=== PATIENT | male | born 1945 | race Caucasian/White ===

== ENCOUNTER 2019-11-05 10:15 | Emergency (ER) | payer OTHER ==
[~2019-11-05] VITALS: Ht 165.1 cm; Wt 96.4 kg
[2019-11-05 10:22] VITALS: Ht 165.1 cm; Wt 96.4 kg
[2019-11-05 12:13] VITALS: BP 135/74
== END 2019-11-05 12:13 | disposition home or self-care (01) ==
LOC: ED 10:15
DX: S31.113A Laceration without foreign body of abdominal wall, right lower quadrant without penetration into peritoneal cavity, initial encounter (principal); I10 Essential (primary) hypertension; E11.9 Type 2 diabetes mellitus without complications; E78.00 Pure hypercholesterolemia, unspecified; W54.0XXA Bitten by dog, initial encounter; Y93.01 Activity, walking, marching and hiking; Y92.89 Other specified places as the place of occurrence of the external cause; Y99.8 Other external cause status
CPT/HCPCS: 90715; J1885

== ENCOUNTER 2019-11-07 14:42 | Emergency (ER) | payer OTHER ==
[~2019-11-07] VITALS: Ht 162.6 cm; Wt 96.6 kg
[2019-11-07 14:46] VITALS: Ht 162.6 cm; Wt 96.6 kg
[2019-11-07 15:09] LABS: BASOPHIL % 0.4 % (0-2); PLATELET COUNT 159 x10^3mcL (130-400); RED CELL DISTRIBUTION WIDTH 13.3 % (11.5-14.5)
[2019-11-07 15:28] LABS: CALCIUM 9.1 mg/dL (8.5-10.1); CHLORIDE SERUM 103 mmol/L (98-107); CREATININE SERUM 1.4 mg/dL (0.7-1.3); GLUCOSE SERUM 301 mg/dL (74-106); SODIUM SERUM 138 mmol/L (136-145)
[2019-11-07 16:31] VITALS: BP 130/74
== END 2019-11-07 16:31 | disposition home or self-care (01) ==
LOC: ED 14:42
PROVIDERS: Specialist
DX: S31.119D Laceration without foreign body of abdominal wall, unspecified quadrant without penetration into peritoneal cavity, subsequent encounter (principal); L03.311 Cellulitis of abdominal wall; I10 Essential (primary) hypertension; E11.9 Type 2 diabetes mellitus without complications; E78.00 Pure hypercholesterolemia, unspecified; W54.0XXD Bitten by dog, subsequent encounter
CPT/HCPCS: J2543

== ENCOUNTER 2019-11-17 14:24 | Emergency (ER) | payer OTHER ==
[~2019-11-17] VITALS: Ht 175.3 cm; Wt 59.4 kg
[2019-11-17 14:31] VITALS: Ht 175.3 cm; Wt 59.4 kg
[2019-11-17 15:08] VITALS: BP 160/88
== END 2019-11-17 15:08 | disposition home or self-care (01) ==
LOC: ED 14:24
DX: Z48.01 Encounter for change or removal of surgical wound dressing (principal); I10 Essential (primary) hypertension; E11.9 Type 2 diabetes mellitus without complications; E78.00 Pure hypercholesterolemia, unspecified

== ENCOUNTER 2020-03-12 17:05 | Emergency (ER) | payer OTHER ==
[~2020-03-12] VITALS: Ht 170.2 cm; Wt 113.4 kg
[2020-03-12 17:57] VITALS: Ht 170.2 cm; Wt 113.4 kg
[2020-03-12 18:28] LABS: BASOPHIL % 0.9 % (0-2); PLATELET COUNT 203 x10^3mcL (130-400); RED CELL DISTRIBUTION WIDTH 13.5 % (11.5-14.5)
[2020-03-12 18:43] LABS: CALCIUM 8.5 mg/dL (8.5-10.1); CARBON DIOXIDE 24.9 mmol/L (21-32); CHLORIDE SERUM 101 mmol/L (98-107); CREATININE SERUM 1.8 mg/dL (0.7-1.3); GLUCOSE SERUM 135 mg/dL (74-106); POTASSIUM SERUM 3.4 mmol/L (3.5-5.1); SODIUM SERUM 136 mmol/L (136-145)
[2020-03-12 18:48] LABS: ALBUMIN 3.4 g/dL (3.4-5.0); ALKALINE PHOSPHATASE 81 U/L (46-116); ALT/SGPT 35 U/L (16-63); AST/SGOT 27 U/L (15-37); BILIRUBIN TOTAL 0.61 mg/dL (0.20-1.00); TOTAL PROTEIN, SERUM 7.5 g/dL (6.4-8.2)
[2020-03-12 18:53] VITALS: BP 171/99
== END 2020-03-12 18:42 | disposition short-term general hospital (02) ==
LOC: ED 17:05
PROVIDERS: Emergency Medicine
DX: I21.3 ST elevation (STEMI) myocardial infarction of unspecified site (principal); I10 Essential (primary) hypertension; E11.9 Type 2 diabetes mellitus without complications; E78.00 Pure hypercholesterolemia, unspecified
CPT/HCPCS: 82962; 83880; 85378

== ENCOUNTER 2020-07-07 14:01 | Emergency (ER) | payer OTHER ==
[~2020-07-07] VITALS: Ht 172.7 cm; Wt 108.9 kg
[2020-07-07 14:21] VITALS: Ht 172.7 cm; Wt 108.9 kg
[2020-07-07 16:19] LABS: BASOPHIL % 0.3 % (0.2-1.5); PLATELET COUNT 285 x10^3mcL (152-348)
[2020-07-07 16:35] LABS: CALCIUM 9.5 mg/dL (8.5-10.1); CHLORIDE SERUM 99 mmol/L (98-107); CREATININE SERUM 2.2 mg/dL (0.7-1.3); GLUCOSE SERUM 180 mg/dL (74-106); SODIUM SERUM 133 mmol/L (136-145)
[2020-07-07 16:38] LABS: ALBUMIN 2.9 g/dL (3.4-5.0); ALKALINE PHOSPHATASE 60 U/L (46-116); ALT/SGPT 31 U/L (16-63); AST/SGOT 44 U/L (15-37); BILIRUBIN TOTAL 0.5 mg/dL (0.20-1.00); TOTAL PROTEIN, SERUM 7.4 g/dL (6.4-8.2)
[2020-07-07 17:07] VITALS: BP 121/68
[2020-07-07 17:55] LABS: microscopic required? YES; urine erythrocyte 1+ (NEGATIVE)
== END 2020-07-07 17:07 | disposition short-term general hospital (02) ==
LOC: ED 14:01
PROVIDERS: Student in an Organized Health Care Education/Training Program
DX: U07.1 COVID-19 (principal); J12.89 Other viral pneumonia; I63.9 Cerebral infarction, unspecified; I48.91 Unspecified atrial fibrillation; D89.40 Mast cell activation, unspecified; R79.89 Other specified abnormal findings of blood chemistry; N17.9 Acute kidney failure, unspecified; I10 Essential (primary) hypertension; E11.9 Type 2 diabetes mellitus without complications; E78.00 Pure hypercholesterolemia, unspecified
CPT/HCPCS: 82962; 83880; G0480